=== PATIENT | female | born 2000 | race American Indian/Alaskan Native ===

== ENCOUNTER 2020-05-25 16:23 | Outpatient (CLI) | payer OTHER ==
[2020-05-25 17:33] VITALS: BP 110/58
[2020-05-25] MEDS ORDERED: LACTATED RINGERS 500 ML IV ONE (17:36)
[2020-05-25 18:20] LABS: Bilirubin,Urine NEG (Negative); Blood,Urine NEG (Negative); Color,Urine Yellow (Yellow); Mucus,Urine FEW /HPF
--- NOTE | 2020-05-25 21:14 | Ultrasound Report ---
Limited obstetrical ultrasound INDICATION: , lower abdominal pain COMPARISON: None FINDINGS: Single intrauterine is noted with estimated gestational age of 22 weeks 2 days. F etus is in a cephalic position at this time. Placenta is anterior and fundal and free of the internal cervical os. Amniotic fluid volume appears appropriate quantitative only. The best vertical pocket i s 5.2 cm. cardiac activity was documented with heart rate of 153 bpm. Signer Name: Ludwin Florian MD Signed: 05/25/2020 9:10 PM Workstation Name: [id number]
== END 2020-05-25 21:22 | disposition home or self-care (01) ==
LOC: TRG 16:23 → APU 16:27 → TRG 21:22
PROVIDERS: ATTEND Obstetrics & Gynecology
DX: O26.892 Other specified pregnancy related conditions, second trimester (principal); R25.2 Cramp and spasm; Z3A.20 20 weeks gestation of pregnancy
CPT/HCPCS: 59025; 76810; 81001

== ENCOUNTER 2020-07-07 20:52 | Emergency (ER) | payer MEDICAID ==
[2020-07-07 21:42] VITALS: BP 112/72
--- NOTE | 2020-07-07 21:47 | Emergency Department Report ---
Chief Complaint: Skin Rash Stated Complaint: POSSIBLE BED BUG EXPOSURE Time Seen by Provider: 07/07/20 21:43 - HPI History of Present Illness: Patient is a 19-year-old female presents emergency room with complaints of being concerned for bedbug bites. She states that last night she stated a hotel and she noticed a few small bugs in the bed per patient. She states that that she woke up this morning and started itching. She denies any drainage, fever, vomiting, diarrhea, swelling, difficulty breathing, any other symptoms. No past medical history. No allergies medications. Patient reports that she is currently 6 months , she denies any abdominal pain or vaginal bleeding. Vitals are normal On exam: There are a few very small skin colored papules present to the bilateral upper extremities and face, there are no erythematous papules, there is nothing present in the webs of the finger, there is no crusting, no drainage Examination appears consistent with a very mild contact dermatitis She has no signs of bedbugs or scabies at this time No signs of emergent skin condition Advised patient to use Benadryl, Zyrtec and cortisone ointment [id number] Discussed follow-up with a primary care doctor and to return to emergency room for any new or worsening symptoms Discussed return precautions with patient Medical screen examination form there is no data left limb this time - Exam Vital Signs: Vital Signs 07/07/20 21:39 Temperature 98.4 F Pulse Rate 84 Respiratory 18 Rate Blood Pressure 112/72 [Left] O2 Sat by Pulse 100 Oximetry MSE screening note: Focused history and physical exam performed. Due to findings the following was ordered: ED Disposition for MSE Clinical Impression: Contact dermatitis Qualifiers: Contact dermatitis type: unspecified Contact dermatitis trigger: unspecified trigger Qualified Code(s): L25.9 - Unspecified contact dermatitis, unspecified cause Disposition: Z MED SCREENING EXAM-LEFT Is pt being admited?: No Does the pt Need Aspirin: No Condition: Stable Instructions: Contact Dermatitis, [id number] Additional Instructions: Advised patient to use Benadryl, Zyrtec and cortisone ointment [id number]. Discussed follow-up with a primary care doctor and to return to emergency room for any new or worsening symptoms Referrals: your, marketing services coordinator [Other] - 3-5 Days your, primary care doctor [Other] - 3-5 Days Time of Disposition: 21:46 Print Language: SWEDISH
== END 2020-07-07 21:45 | disposition left against medical advice (07) ==
LOC: ED 20:52
DX: L25.9 Unspecified contact dermatitis, unspecified cause (principal); Z53.21 Procedure and treatment not carried out due to patient leaving prior to being seen by health care provider